=== PATIENT | male | born 1975 | race Caucasian/White ===

== ENCOUNTER 2016-10-21 09:28 | Emergency (ER) | payer OTHER ==
[~2016-10-21] VITALS: Ht 190.5 cm; Wt 108.0 kg
[2016-10-21] MEDS ORDERED: MAALOX/HYOSCYAMINE/LIDOCAINE 45 ML BOTTLE ONE (10:42)
[2016-10-21] MEDS ORDERED: SODIUM CHLORIDE FLUSH 10ML SYR IVF ONE (11:00)
[2016-10-21] MEDS ORDERED: MAALOX/HYOSCYAMINE/LIDOCAINE 45 ML BOTTLE PO ONE (11:00)
[2016-10-21 11:11] LABS: ASPARTATE AMINO TRANSFERASE 26 U/L (15-37); BLOOD UREA NITROGEN 14 mg/dL (7-18)
[2016-10-21] MEDS ORDERED: ONDANSETRON 2MG/ML, 2ML ONE (11:22)
[2016-10-21] MEDS ORDERED: HYDROmorphone 1 MG/ML, 1ML IVPush PRN (11:30)
[2016-10-21] MEDS ORDERED: ONDANSETRON 2MG/ML, 2ML IVPush ONE (11:30)
[2016-10-21 13:21] VITALS: BP 107/72
== END 2016-10-21 13:23 | disposition home or self-care (01) ==
LOC: ED 10:19
DX: K29.00 Acute gastritis without bleeding (principal)
CPT/HCPCS: 36415; 74022; 76700; 80053; 81003; 83690; 84484; 85025; 93005; 96374; 99285; J2405